=== PATIENT | female | born 1980 | race Caucasian/White ===

== ENCOUNTER 2016-11-04 07:49 | Day surgery (SDC) | payer OTHER ==
[~2016-11-04] VITALS: Ht 162.6 cm; Wt 85.3 kg
[~2016-11-04 07:49] MED LIST: GLUCOPHAGE500 MG PO; IRON325 MG PO; MULTIPLE VITAM1 EAC4 PO; NORVASC10 MG PO; PRAVACHOL10 MG PO
[2016-11-04 08:24] VITALS: BP 126/76
[2016-11-04 08:27] LABS: POINT-OF-CARE METER ID UU14174212
[2016-11-04] MEDS ORDERED: PERCOCET 5/31 TABLET PO (10:12)
[2016-11-04] MEDS ORDERED: MOTRIN800 MG PO (10:12)
[2016-11-04 13:17] LABS: POINT-OF-CARE METER ID UU13113675
[2016-11-04 14:02] VITALS: BP 101/64
[2016-11-04 15:22] VITALS: BP 109/63
== END 2016-11-04 15:27 | disposition home or self-care (01) ==
LOC: SDC 07:49
PROVIDERS: Obstetrics & Gynecology
DX: N93.8 Other specified abnormal uterine and vaginal bleeding (principal); N87.9 Dysplasia of cervix uteri, unspecified; N72 Inflammatory disease of cervix uteri; N80.0 Endometriosis of uterus; N83.02 Follicular cyst of left ovary; Z30.432 Encounter for removal of intrauterine contraceptive device; I10 Essential (primary) hypertension; E78.00 Pure hypercholesterolemia, unspecified; E11.9 Type 2 diabetes mellitus without complications; Z88.0 Allergy status to penicillin; Z79.84 Long term (current) use of oral hypoglycemic drugs; Z80.3 Family history of malignant neoplasm of breast; Z82.49 Family history of ischemic heart disease and other diseases of the circulatory system; Z81.1 Family history of alcohol abuse and dependence; Z81.8 Family history of other mental and behavioral disorders; Z87.891 Personal history of nicotine dependence
CPT/HCPCS: 82948; 88307; J0131; J1100; J1170; J1580; J1885; J2250; J2405; J2710; J3010; J7050; S0020